=== PATIENT | female | born 1940 | race Caucasian/White ===

== ENCOUNTER 2019-01-19 08:18 | Emergency (ER) | payer MEDICARE, BC ==
[2019-01-19] MEDS ORDERED: Ketorolac 30 MG/ML SDV IVPUSH ONE (08:32)
[2019-01-19] MEDS ORDERED: Sodium Chloride 0.9% 500 ML IV SCH (08:45)
--- NOTE | 2019-01-19 08:53 | EDM.PDOC ---
ED HPI GENERAL MEDICAL PROBLEM - General Stated Complaint: FELL AND HAVING PAIN Time Seen by Provider: 01/19/19 08:31 - History of Present Illness INITIAL COMMENTS - FREE TEXT/NARRATIVE: HISTORY AND PHYSICAL: History of present illness: Patient is a 79-year-old white female who presents status post fall last Saturday in which she fell getting shower striking her left chest and abdomen she's had persistent pain that worsened. She did hit her head has had no loss consciousness no neck pain denies nausea or vomiting. Review of systems: As per history of present illness and below otherwise all systems reviewed and negative. Past medical history: As per history of present illness and as reviewed below otherwise noncontributory. Surgical history: As per history of present illness and as reviewed below otherwise noncontributory. Social history: No reported history of drug or alcohol abuse. Family history: As per history of present illness and as reviewed below otherwise noncontributory. Physical exam: HEENT: Atraumatic, normocephalic, pupils reactive, negative for conjunctival pallor or scleral icterus, mucous membranes moist, throat clear, neck supple, nontender, trachea midline. Lungs: Clear to auscultation, breath sounds equal bilaterally, chest tender left lower ribs to palpation no crepitation no gross deformity Heart: S1S2, regular, negative for clicks, rubs, or JVD. Abdomen: Soft, nondistended, tenderness to palpation in the left thoracoabdominal region. Negative for masses or hepatosplenomegaly. Left-sided costovertebral tenderness. Pelvis: Stable nontender. Genitourinary: Deferred. Rectal: Deferred. Extremities: Atraumatic, negative for cords or calf pain. Neurovascular unremarkable. Neuro: Awake, alert, oriented. Cranial nerves II through XII unremarkable. Cerebellum unremarkable. Motor and sensory unremarkable throughout. Exam nonfocal. Diagnostics: CBC CMP troponin PT/INR EKG CT chest abdomen and pelvis Therapeutics: IV 500 mL bolus saline Toradol 30 mg IV Impression: #1 observation status post fall #2 head injury #3 thoracoabdominal trauma Definitive disposition and diagnosis as appropriate pending reevaluation and review of above. Left Ribs Pain Score (Numeric/FACES): 8 - Related Data Allergies Allergy/AdvReac Type Severity Reaction Status Date / Time No Known Allergies Allergy Verified 10/01/15 11:24 Home Meds: Home Meds Aspirin [Adult Low Dose Aspirin EC] 81 mg PO DAILY #30 tablet. 10/01/15 [Rx] Hydrochlorothiazide 1 tab PO DAILY 10/01/15 [History] amLODIPine [Norvasc] 1 tab PO DAILY 10/01/15 [History] Past Medical History HEENT History: Reports: Impaired Vision Cardiovascular History: Reports: Hypertension Respiratory History: Reports: None Gastrointestinal History: Reports: Other (See Below) Other Gastrointestinal History: colon cancer Genitourinary History: Reports: Urinary Incontinence EDUCATION REP History: Reports: Other (See Below) Other EDUCATION REP History: tubal ligation Musculoskeletal History: Reports: Fracture, Other (See Below) Other Musculoskeletal History: fracture right elbow age 9 Neurological History: Reports: Other (See Below) Other Neuro History: bells palsy Endocrine/Metabolic History: Reports: None Oncologic (Cancer) History: Reports: Colon Other Oncologic History: surgery was done for her colon CA - Infectious Disease History Infectious Disease History: Reports: Measles - Past Surgical History GI Surgical History: Reports: Hernia Repair/Other Social & Family History - Family History HEENT: Reports: None Cardiac: Reports: None Neurological: Reports: CVA Endocrine/Metabolic: Reports: Hypothyroidism Oncologic: Reports: Breast ED ROS GENERAL - Review of Systems Review Of Systems: ROS reveals no pertinent complaints other than HPI. ED EXAM, GENERAL - Physical Exam Exam: See Below (See dictation) Course - Vital Signs Last Recorded V/S: Last Vital Signs Temp 36.6 C 01/19/19 09:12 Pulse 101 H 01/19/19 09:12 Resp 16 01/19/19 09:12 BP 127/84 01/19/19 09:12 Pulse Ox 95 01/19/19 09:12 - Orders/Labs/Meds Orders: Active Orders 24 hr Category Date Time Status EKG Documentation Completion [RC] STAT Care 01/19/19 08:31 Active Sodium Chloride 0.9% [Normal Saline] 500 ml Med 01/19/19 08:45 Active IV STAT Medication Orders Sodium Chloride (Normal Saline) 500 mls @ 999 mls/hr IV STAT SAM Last Admin: 01/19/19 08:46 Dose: 999 mls/hr Labs: Laboratory Tests 01/19/19 01/19/19 01/19/19 Range/Units 08:44 08:44 08:44 WBC 6.36 (4.0-11.0) K/uL RBC 4.82 (4.30-5.90) M/uL Hgb 15.6 (12.0-16.0) g/dL Hct 46.5 H (36.0-46.0) % MCV 96.5 (80.0-98.0) fL MCH 32.4 H (27.0-32.0) pg MCHC 33.5 (31.0-37.0) g/dL RDW Std Deviation 46.3 (28.0-62.0) fl RDW Coeff of Adan 13 (11.0-15.0) % Plt Count 204 (150-400) K/uL MPV 9.60 (7.40-12.00) fL Neut % (Auto) 70.6 (48.0-80.0) % Lymph % (Auto) 18.7 (16.0-40.0) % [place] % (Auto) 9.1 (0.0-15.0) % Eos % (Auto) 1.3 (0.0-7.0) % Baso % (Auto) 0.3 (0.0-1.5) % Neut # (Auto) 4.5 (1.4-5.7) K/uL Lymph # (Auto) 1.2 (0.6-2.4) K/uL [place] # (Auto) 0.6 (0.0-0.8) K/uL Eos # (Auto) 0.1 (0.0-0.7) K/uL Baso # (Auto) 0.0 (0.0-0.1) K/uL Nucleated RBC % 0.0 /100WBC Nucleated RBCs # 0 K/uL INR 1.01 Sodium 140 (136-145) mmol/L Potassium 3.2 L (3.5-5.1) mmol/L Chloride 103 (98-107) mmol/L Carbon Dioxide 25.9 (21.0-32.0) mmol/L BUN 12 (7.0-18.0) mg/dL Creatinine 0.8 (0.6-1.0) mg/dL Est Cr Clr Drug Dosing 54.42 mL/min Estimated GFR (MDRD) > 60.0 ml/min Glucose 129 H (74-106) mg/dL Calcium 8.9 (8.5-10.1) mg/dL Total Bilirubin 1.0 (0.2-1.0) mg/dL AST 21 (15-37) IU/L ALT 33 (14-63) IU/L Alkaline Phosphatase 83 (46-116) U/L Troponin I < 0.050 (0.000-0.056) ng/mL Total Protein 7.3 (6.4-8.2) g/dL Albumin 3.8 (3.4-5.0) g/dL Globulin 3.5 (2.6-4.0) g/dL Albumin/Globulin Ratio 1.1 (0.9-1.6) Lipase 99 (73-393) U/L Meds: Medications Generic Name Dose Route Start Last Admin Trade Name Freq PRN Reason Stop Dose Admin Sodium Chloride 500 mls @ 999 mls/hr 01/19/19 08:45 01/19/19 08:46 Normal Saline IV 999 mls/hr STAT SAM Administration Discontinued Medications Generic Name Dose Route Start Last Admin Trade Name Freq PRN Reason Stop Dose Admin Iopamidol 75 ml 01/19/19 10:02 01/19/19 10:04 Isovue Multipack-370 (76%) IVPUSH 01/19/19 10:03 75 ml ONETIME ONE Administration Ketorolac Tromethamine 30 mg 01/19/19 08:32 01/19/19 08:46 Toradol IVPUSH 01/19/19 08:33 30 mg ONETIME ONE Administration Departure - Departure Time of Disposition: 10:53 Disposition: Home, Self-Care 01 Condition: Good Clinical Impression: Fall, Contusion, Abnormal chest CT - Discharge Information Additional Instructions: The following information is given to patients seen in the emergency department who are being discharged to home. This information is to outline your options for follow-up care. We provide all patients seen in our emergency department with a follow-up referral. The need for follow-up, as well as the timing and circumstances, are variable depending upon the specifics of your emergency department visit. If you don't have a primary care physician on staff, we will provide you with a referral. We always advise you to contact your personal physician following an emergency department visit to inform them of the circumstance of the visit and for follow-up with them and/or the need for any referrals to a consulting specialist. The emergency department will also refer you to a specialist when appropriate. This referral assures that you have the opportunity for followup care with a specialist. All of these measure are taken in an effort to provide you with optimal care, which includes your followup. Under all circumstances we always encourage you to contact your private physician who remains a resource for coordinating your care. When calling for followup care, please make the office aware that this follow-up is from your recent emergency room visit. If for any reason you are refused follow-up, please contact the [facility] emergency department at and asked to speak to the emergency department charge nurse. Hydrocodone as prescribed follow-up primary medical doctor for reevaluation of the CAT scan findings and consultation return as needed as discussed - My Orders Last 24 Hours: My Active Orders 01/19/19 08:31 EKG Documentation Completion [RC] STAT 01/19/19 08:45 Sodium Chloride 0.9% [Normal Saline] 500 ml IV STAT - Assessment/Plan Last 24 Hours: My Active Orders 01/19/19 08:31 EKG Documentation Completion [RC] STAT 01/19/19 08:45 Sodium Chloride 0.9% [Normal Saline] 500 ml IV STAT
[2019-01-19 09:32] LABS: CHLORIDE,CL 103 mmol/L (98-107); SODIUM,NA 140 mmol/L (136-145)
[2019-01-19] MEDS ORDERED: Iopamidol 755 MG/ML 200 ML Multipack Bottle IVPUSH ONE (10:02)
--- NOTE | 2019-01-19 10:32 | CT ---
EXAMINATION: Non contrast CT head. Coronal and sagittal reformats. HISTORY: Pain FINDINGS: No evidence of intra or extra axial hemorrhage, midline shift, hydrocephalus or edema. There is a 1 cm hypodense nodule within the region of the right thalamus, previously characterized on MRI dated 10/13/2015. Periventricular and subcortical white matter hypodensities are noted. No hypoattenuation changes in the major vascular territories to suggest acute infarct. No abnormal intracranial calcifications are detected. No evidence of substantial vascular calcifications. Paranasal sinuses and mastoid air cells are well aerated without substantial findings. Pituitary fossa appears unremarkable. The orbits and globes are symmetric. Calvarium is intact. No evidence of skull fracture. Stable small left frontal subcutaneous calcification also noted. IMPRESSION: 1. No acute intracranial findings. 2. Mild small vessel ischemic changes. 3. Stable tiny right thalamic nodule.
--- NOTE | 2019-01-19 10:43 | CT ---
CT of the chest, abdomen and pelvis with contrast. HISTORY: Shortness of breath TECHNIQUE: Axial CT images were obtained of the chest, abdomen and pelvis following administration of 75 mL of Isovue-370 in the left antecubital fossa without complication. Coronal and sagittal reconstructions obtained. FINDINGS: Chest: Moderate emphysematous changes are noted. There is thickening along the right minor fissure. Likely atelectasis. There is a cavitary 2.6 cm nodule within the right lower lobe. The heart is normal in size without a pericardial effusion. Thoracic aorta is normal in caliber. Main pulmonary arteries are patent without evidence of a pulmonary embolism. No mediastinal, hilar, or axillary lymphadenopathy. Central airways are clear. Abdomen: There are multiple nodules/masses within the liver, the largest measuring 7 cm within the left hepatic lobe. These demonstrate interrupted peripheral nodular enhancement with increasing enhancement on delayed imaging. These are most consistent with hemangiomas. Mild nodular thickening of the left adrenal gland. The gallbladder is grossly unremarkable. The spleen is unremarkable. No bulky retroperitoneal lymphadenopathy or abdominal ascites. The kidneys enhance and function symmetrically without evidence of obstructive uropathy. Renal cortical cysts are noted. Pelvis: The large and small bowel are normal in caliber without evidence of obstruction. No focal pericolonic inflammation or stranding. Postsurgical changes are noted near the cecum. No bulky pelvic lymphadenopathy or free pelvic fluid. The urinary bladder is minimally filled. Small calcified uterine fibroids. Tiny sclerotic focus within the right pedicle of T2. Likely a small meningioma within the spinal canal at approximately T4. Otherwise osseous structures appear intact. Bone mineralization is osteopenic. Degenerative changes noted within the lumbar spine. IMPRESSION: 1. No definite acute findings within the chest, abdomen, or pelvis. 2. Suspicious cavitary 2.6 cm nodule within the left lower lobe. 3. Multiple hepatic hemangiomas. 4. Likely tiny meningioma within the spinal canal at T4. 5. Severe pulmonary emphysema.
[2019-01-19 11:25] VITALS: BP 132/74
== END 2019-01-19 11:26 | disposition home or self-care (01) ==
LOC: MW.ED 08:18
DX: S20.212A Contusion of left front wall of thorax, initial encounter (principal); S00.83XA Contusion of other part of head, initial encounter; W18.2XXA Fall in (into) shower or empty bathtub, initial encounter; R94.8 Abnormal results of function studies of other organs and systems; I10 Essential (primary) hypertension; Z79.82 Long term (current) use of aspirin; Z79.899 Other long term (current) drug therapy
CPT/HCPCS: 36415; 70450; 71260; 74177; 80053; 83690; 84484; 85025; 85610; 93005; 96374; 99284; J1885; J7040; Q9967

== ENCOUNTER 2019-05-22 06:41 | Day surgery (SDC) | payer MEDICARE, BC ==
[~2019-05-22 06:41] MED LIST: Lactated Ringers 1,000 ML IV SCH
[2019-05-22] MEDS ORDERED: Propofol 200 MG/20 ML SDV ONE (07:19)
[2019-05-22] MEDS ORDERED: Midazolam 1 MG/ML 2 ML SDV ONE (07:19)
--- NOTE | 2019-05-22 07:21 | PCM.PREANE ---
Preanesthetic Assessment - Anesthesia/Transfusion/Family Hx Anesthesia History: Prior Anesthesia Without Reaction Family History of Anesthesia Reaction: No Transfusion History: No Prior Transfusion(s) - Review of Systems General: No Symptoms Pulmonary: No Symptoms Cardiovascular: No Symptoms Gastrointestinal: No Symptoms Neurological: No Symptoms Other: Reports: None - Physical Assessment Vital Signs: Last Vital Signs Temp 97.5 F 05/22/19 06:45 Pulse 83 05/22/19 06:45 Resp 16 05/22/19 06:45 BP 123/62 05/22/19 06:45 Pulse Ox 93 L 05/22/19 06:45 Height: 5 ft 6 in Weight: 67.585 kg ASA Class: 2 Mental Status: Alert & Oriented x3 Airway Class: Mallampati = 2 Dentition: Reports: Normal Dentition ROM/Head Extension: Full Lungs: Clear to Auscultation, Normal Respiratory Effort Cardiovascular: Regular Rate, Regular Rhythm - Allergies Allergies/Adverse Reactions: Allergies Allergy/AdvReac Type Severity Reaction Status Date / Time No Known Allergies Allergy Verified 05/20/19 09:53 - Blood Blood Available: No - Anesthesia Plan Pre-Op Medication Ordered: None - Acknowledgements Anesthesia Type Planned: General Anesthesia Pt an Appropriate Candidate for the Planned Anesthesia: Yes Alternatives and Risks of Anesthesia Discussed w Pt/Guardian: Yes Pt/Guardian Understands and Agrees with Anesthesia Plan: Yes Additional Comments: PMH: htm, hld, hx of colon cancer with new rectal bleeding PLAN: tiva PreAnesthesia Questionnaire HEENT History: Reports: Impaired Vision, Other (See Below) Other HEENT History: wears glasses Cardiovascular History: Reports: High Cholesterol, Hypertension Respiratory History: Reports: None Gastrointestinal History: Reports: Other (See Below) Other Gastrointestinal History: colon cancer Genitourinary History: Reports: Urinary Incontinence [employer] History: Reports: Musculoskeletal History: Reports: Fracture, Other (See Below) Other Musculoskeletal History: fracture right elbow age 9 Neurological History: Reports: Other (See Below) Other Neuro History: bells palsy Psychiatric History: Reports: None Endocrine/Metabolic History: Reports: None Hematologic History: Reports: None Immunologic History: Reports: None Oncologic (Cancer) History: Reports: Colon Dermatologic History: Reports: None - Infectious Disease History Infectious Disease History: Reports: Measles - Past Surgical History Head Surgeries/Procedures: Reports: None HEENT Surgical History: Reports: None Cardiovascular Surgical History: Reports: None Respiratory Surgical History: Reports: None GI Surgical History: Reports: Colonoscopy, Hernia, Inguinal Other GI Surgeries/Procedures: rt hemicolectomy 2005, laila inguinal hernia repair Female Surgical History: Reports: Tubal Ligation Endocrine Surgical History: Reports: Thyroidectomy Other Endocrine Surgeries/Procedures: thyroid surgery Neurological Surgical History: Reports: None Musculoskeletal Surgical History: Reports: None Dermatological Surgical History: Reports: None - SUBSTANCE USE Smoking Status *Q: Former Smoker Recreational Drug Use History: No - HOME MEDS Home Medications: Home Meds Hydrochlorothiazide 1 tab PO DAILY 10/01/15 [History] amLODIPine [Norvasc] 1 tab PO DAILY 10/01/15 [History] atorvaSTATin Calcium [Atorvastatin Calcium] 1 tab PO DAILY 05/20/19 [History] - CURRENT (IN HOUSE) MEDS Current Meds: Current Medications Lactated Ringer's (Ringers, Lactated) 1,000 mls @ 125 mls/hr IV ASDIRECTED [facility] Last Admin: 05/22/19 07:00 Dose: 125 mls/hr
--- NOTE | 2019-05-22 08:51 | PCM.OPNOTE ---
- General Post-Op/Procedure Note Date of Surgery/Procedure: 05/22/19 Operative Procedure(s): Colonoscopy with biopsy of the distal small bowel and cold polypectomies from the transverse colon and rectum. Pre Op Diagnosis: Personal history of colon cancer. Intermittent rectal bleeding. 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 Transverse colon polyp. Mid and distal rectal polyps. Anesthesia Technique: MAC (ASA II) Primary Surgeon: Zach Taylor Condition: Good Free Text/Narrative:: DICTATION [id number] CPT CODE 77497
[2019-05-22] MEDS ORDERED: Lactated Ringers 1,000 ML IV SCH (09:00)
--- NOTE | 2019-05-22 09:13 | PCM.POSTAN ---
POST ANESTHESIA ASSESSMENT - MENTAL STATUS Mental Status: Alert, Oriented - VITAL SIGNS Vital Signs: Last Vital Signs Temp 97.5 F 05/22/19 06:45 Pulse 66 05/22/19 08:56 Resp 18 05/22/19 08:56 BP 139/80 05/22/19 08:56 Pulse Ox 95 05/22/19 08:56 - RESPIRATORY Respiratory Status: Respiratory Rate WNL, Airway Patent, O2 Saturation Stable - CARDIOVASCULAR CV Status: Pulse Rate WNL, Blood Pressure Stable - GASTROINTESTINAL GI Status: No Symptoms - POST OP HYDRATION Hydration Status: Adequate & Stable
--- NOTE | 2019-05-22 09:13 | PCM48HPAN ---
Post Anesthesia Note - EVALUATION WITHIN 48HRS OF ANESTHETIC Vital Signs in Normal Range: Yes Patient Participated in Evaluation: Yes Respiratory Function Stable: Yes Airway Patent: Yes Cardiovascular Function Stable: Yes Hydration Status Stable: Yes Pain Control Satisfactory: Yes Nausea and Vomiting Control Satisfactory: Yes Mental Status Recovered: Yes Vital Signs: Last Vital Signs Temp 97.5 F 05/22/19 06:45 Pulse 66 05/22/19 08:56 Resp 18 05/22/19 08:56 BP 139/80 05/22/19 08:56 Pulse Ox 95 05/22/19 08:56
--- NOTE | 2019-05-22 09:38 | OR ---
SURGEON: Zach Taylor M.D. DATE OF PROCEDURE: 05/22/2019 OPERATIONS PERFORMED: Colonoscopy with biopsy of the distal small bowel proximal to the anastomosis, transverse colon polypectomy, and rectal polypectomy. PREOPERATIVE DIAGNOSES: 1. Personal history of colon cancer. 2. Rectal bleeding. POSTOPERATIVE DIAGNOSES: 1. Lymphoid hyperplasia at the distal small bowel. 2. Transverse colon polyp. 3. Mid rectal polyps x2, sent as one specimen as they were within 1 to 2 cm. 4. Distal rectal polyp. DESCRIPTION OF PROCEDURE: The patient was taken to the endoscopy room and positioned on the endoscopy table in the left lateral decubitus position. Time-out was called for appropriate identification of the patient and procedure. Monitored anesthesia care was provided. The colonoscope was inserted into the rectum and advanced with minimal difficulty to the proximal colon visualizing the anastomosis easily. The colonoscope does traverse the anastomosis and there was no obvious evidence of recurrent disease at the anastomotic site. The colonoscope was then slowly withdrawn. The first polyp was encountered in the transverse colon and removed with the cold biopsy forceps. The remainder of the transverse colon, splenic flexure, descending colon, and sigmoid colon showed no tumors, polyps, diverticula, or angiodysplastic changes. The colonoscope was withdrawn to the rectum, and between 15 and 17 cm from the anal orifice, two polyps were encountered and removed with the cold biopsy forceps. Since these were so close together, they were sent as one specimen. The colonoscope was then retroflexed to visualize the anal orifice from above. A distal rectal polyp was also encountered and likewise removed with the cold biopsy forceps. Minimal bleeding was noted. The patient also has hemorrhoidal disease. There was no obvious tumor recurrence. The colonoscope was then straightened, the rectum aspirated, and the colonoscope removed. The patient tolerated the procedure well and was taken to recovery room in stable condition. DALE / KEITH /[id number]
[2019-05-22 11:52] VITALS: BP 140/67
== END 2019-05-22 09:25 | disposition home or self-care (01) ==
LOC: MW.SDS 06:41
PROVIDERS: ATTEND Surgery
DX: D12.8 Benign neoplasm of rectum (principal); K63.89 Other specified diseases of intestine; K63.5 Polyp of colon; E78.00 Pure hypercholesterolemia, unspecified; I10 Essential (primary) hypertension; F17.210 Nicotine dependence, cigarettes, uncomplicated; Z85.038 Personal history of other malignant neoplasm of large intestine; Z80.0 Family history of malignant neoplasm of digestive organs; Z79.899 Other long term (current) drug therapy
CPT/HCPCS: 45380; 88305; J2250; J2704; J7120; 00811

== ENCOUNTER 2023-11-21 17:05 | Emergency (ER) | payer MEDICARE, OTHER, BC ==
[2023-11-21 17:32] LABS: BASOPHILS ABSOLUTE AUTO 0.02 K/uL (0.00-0.20); BASOPHILS PERCENT AUTO 0.4 % (0.0-1.0); EOSINOPHILS ABSOLUTE AUTO 0.03 K/uL (0.00-0.45); EOSINOPHILS PERCENT AUTO 0.6 % (0.0-6.0); HEMATOCRIT 39.8 % (37.0-47.0); HEMOGLOBIN 13.5 g/dL (12.0-16.0); IMMATURE GRAN ABSOLUTE AUTO 0.01 K/uL (0.00-0.05); IMMATURE GRAN PERCENT AUTO 0.2 % (0.0-0.4); LYMPHOCYTES ABSOLUTE AUTO 1.22 K/uL (1.00-4.80); LYMPHOCYTES PERCENT AUTO 24.7 % (24.0-44.0); MEAN CORPUSCULAR HEMOGLOBIN 36.1 pg (28.0-32.0); MEAN CORPUSCULAR HGB CONC 33.9 g/dL (32.0-36.0); MEAN CORPUSCULAR VOLUME 106.4 fL (83.0-99.0); MEAN PLATELET VOLUME 9.3 fL (9.4-12.3); MONOCYTES ABSOLUTE AUTO 0.45 K/uL (0.00-0.80); MONOCYTES PERCENT AUTO 9.1 % (0.0-8.0); PLATELET COUNT,PLT 163 K/uL (150-400); RED BLOOD CELL COUNT 3.74 M/uL (4.10-5.30); WHITE BLOOD CELL COUNT,WBC 4.93 K/uL (3.9-11.3)
[2023-11-21] MEDS: Sodium Chloride 0.9% 10 ML Syringe FLUSH PRN (17:37)
[2023-11-21] MEDS: Sodium Chloride 0.9% 2.5 ML Syringe FLUSH PRN (17:38)
[2023-11-21 17:40] LABS: INR 1.08 (0.86-1.11)
[2023-11-21 18:01] LABS: A/G RATIO 1.1 (0.9-1.6); ALBUMIN 3.7 g/dL (3.4-5.0); BILIRUBIN TOTAL 0.3 mg/dL (0.2-1.0); CALCIUM 8.8 mg/dL (8.5-10.1); CARBON DIOXIDE,CO2 21.3 mmol/L (21.0-32.0); CREATININE 0.9 mg/dL (0.6-1.0); EST CRCL DRUG DOSING (CG) 43.29 mL/min; POTASSIUM,K 3.9 mmol/L (3.5-5.1); PROTEIN TOTAL,TP 7.2 g/dL (6.4-8.2)
[2023-11-21 19:43] VITALS: BP 133/87; PULSE 105
== END 2023-11-21 19:43 | disposition home or self-care (01) ==
LOC: MW.ED 17:05
DX: G25.9 Extrapyramidal and movement disorder, unspecified (principal); I44.7 Left bundle-branch block, unspecified; I10 Essential (primary) hypertension; E78.00 Pure hypercholesterolemia, unspecified; Z79.899 Other long term (current) drug therapy
CPT/HCPCS: 36415; 80053; 84484; 85025; 85610; 99285; J3490; 93010; 99282

== ENCOUNTER 2024-01-02 17:32 | Inpatient (IN) | payer MEDICARE, OTHER ==
[2024-01-02] MEDS: Sodium Chloride 0.9% 2.5 ML Syringe FLUSH PRN (18:08)
[2024-01-02] MEDS: Sodium Chloride 0.9% 10 ML Syringe FLUSH PRN (18:08)
[2024-01-02 18:09] LABS: BASOPHILS ABSOLUTE AUTO 0.02 K/uL (0.00-0.20); BASOPHILS PERCENT AUTO 0.2 % (0.0-1.0); HEMATOCRIT 37.6 % (37.0-47.0); IMMATURE GRAN ABSOLUTE AUTO 0.05 K/uL (0.00-0.05); IMMATURE GRAN PERCENT AUTO 0.4 % (0.0-0.4); LYMPHOCYTES ABSOLUTE AUTO 0.53 K/uL (1.00-4.80); LYMPHOCYTES PERCENT AUTO 4.7 % (24.0-44.0); MEAN CORPUSCULAR HEMOGLOBIN 36.6 pg (28.0-32.0); MEAN CORPUSCULAR HGB CONC 34.6 g/dL (32.0-36.0); MEAN CORPUSCULAR VOLUME 105.9 fL (83.0-99.0); MEAN PLATELET VOLUME 9.6 fL (9.4-12.3); MONOCYTES PERCENT AUTO 7.1 % (0.0-8.0); NEUTROPHILS ABSOLUTE AUTO 9.82 K/uL (1.80-7.70); NEUTROPHILS PERCENT AUTO 87.6 % (41.0-71.0); PLATELET COUNT,PLT 105 K/uL (150-400); RED BLOOD CELL COUNT 3.55 M/uL (4.10-5.30); WHITE BLOOD CELL COUNT,WBC 11.22 K/uL (3.9-11.3)
[2024-01-02] MEDS: Sodium Chloride 0.9% 1,000 ML IV STA (18:31)
[2024-01-02 18:36] LABS: ALBUMIN 3.7 g/dL (3.4-5.0); BILIRUBIN TOTAL 0.6 mg/dL (0.2-1.0); CALCIUM 9.4 mg/dL (8.5-10.1); CARBON DIOXIDE,CO2 22.4 mmol/L (21.0-32.0); CREATININE 0.7 mg/dL (0.6-1.0); EST CRCL DRUG DOSING (CG) 52.98 mL/min; POTASSIUM,K 3.7 mmol/L (3.5-5.1); PROTEIN TOTAL,TP 7.3 g/dL (6.4-8.2)
[2024-01-02 18:53] LABS: CORONAVIRUS COVID-19 NAA NEGATIVE (NEGATIVE); INFLUENZA A NAA NEGATIVE (NEGATIVE); INFLUENZA B NAA NEGATIVE (NEGATIVE); RESPIRATORY SYNCYTIAL VIR NAA NEGATIVE (NEGATIVE)
[2024-01-02] MEDS: Piperacillin/Tazobactam 4.5 GM in Sodium Chloride 0.9% 100 ML IV ONE (19:13)
[2024-01-02 19:18] LABS: LACTIC ACID 1.2 mmol/L (0.4-2.0)
[2024-01-02] MEDS: Iopamidol 755 MG/ML 500 ML Multipack Bottle IVPUSH STA (19:21)
[2024-01-02] MEDS: Morphine 4 MG/ML Syringe IVPUSH ONE (19:33)
[2024-01-02] MEDS: Ondansetron 4 MG/2 ML SDV IVPUSH ONE (19:34)
[2024-01-02 20:18] LABS: APPEARANCE,URINE CLEAR; BILIRUBIN,URINE NEGATIVE (NEGATIVE); COLOR,URINE YELLOW; GLUCOSE,URINE NEGATIVE (NEGATIVE); KETONES,URINE NEGATIVE (NEGATIVE); LEUKOCYTE ESTERASE,URINE NEGATIVE (NEGATIVE); NITRITE,URINE POSITIVE (NEGATIVE); OCCULT BLOOD,URINE TRACE-INTACT (NEGATIVE); PROTEIN,URINE NEGATIVE (NEGATIVE); UROBILINOGEN,URINE 0.2 EU/dL (<2.0)
[2024-01-02 20:29] LABS: BACTERIA,URINE RARE (NEGATIVE); RBC,URINE 0-1 (0-2/HPF); SQUAMOUS EPITHELIAL CELLS,UR RARE; WBC,URINE 0-2 (0-5/HPF)
[2024-01-02] MEDS: Azithromycin 500 MG in Sodium Chloride 0.9% 250 ML IV SCH (23:26)
[2024-01-03] MEDS: Piperacillin/Tazobactam 4.5 GM in Sodium Chloride 0.9% 100 ML IV SCH (00:32)
[2024-01-03] MEDS ORDERED: Piperacillin/Tazobactam 3.375 GM in Sodium Chloride 0.9% 100 ML IV SCH (01:00)
[2024-01-03 06:06] LABS: BASOPHILS ABSOLUTE AUTO 0.02 K/uL (0.00-0.20); BASOPHILS PERCENT AUTO 0.2 % (0.0-1.0); EOSINOPHILS ABSOLUTE AUTO 0.01 K/uL (0.00-0.45); EOSINOPHILS PERCENT AUTO 0.1 % (0.0-6.0); HEMATOCRIT 33.5 % (37.0-47.0); HEMOGLOBIN 11.4 g/dL (12.0-16.0); IMMATURE GRAN ABSOLUTE AUTO 0.05 K/uL (0.00-0.05); IMMATURE GRAN PERCENT AUTO 0.5 % (0.0-0.4); LYMPHOCYTES ABSOLUTE AUTO 0.91 K/uL (1.00-4.80); LYMPHOCYTES PERCENT AUTO 8.3 % (24.0-44.0); MEAN CORPUSCULAR HEMOGLOBIN 36.2 pg (28.0-32.0); MEAN CORPUSCULAR VOLUME 106.3 fL (83.0-99.0); MEAN PLATELET VOLUME 9.8 fL (9.4-12.3); MONOCYTES ABSOLUTE AUTO 1.11 K/uL (0.00-0.80); MONOCYTES PERCENT AUTO 10.2 % (0.0-8.0); NEUTROPHILS ABSOLUTE AUTO 8.82 K/uL (1.80-7.70); NEUTROPHILS PERCENT AUTO 80.7 % (41.0-71.0); PLATELET COUNT,PLT 102 K/uL (150-400); RED BLOOD CELL COUNT 3.15 M/uL (4.10-5.30); WHITE BLOOD CELL COUNT,WBC 10.92 K/uL (3.9-11.3)
[2024-01-03 06:28] LABS: CALCIUM 8.6 mg/dL (8.5-10.1); CARBON DIOXIDE,CO2 25.9 mmol/L (21.0-32.0); CREATININE 0.7 mg/dL (0.6-1.0); EST CRCL DRUG DOSING (CG) 55.16 mL/min; POTASSIUM,K 3.5 mmol/L (3.5-5.1)
[2024-01-03] MEDS: Acetaminophen 325 MG Tab PO PRN (08:34)
[2024-01-03] MEDS ORDERED: oxyCODONE 5 MG Tab PO PRN (10:44)
[2024-01-03] MEDS: Hydrochlorothiazide 25 MG Tab PO SCH (10:54)
[2024-01-03] MEDS: amLODIPine 5 MG Tab PO SCH (10:55)
[2024-01-03] MEDS: Ibuprofen 600 MG Tab PO PRN (10:57)
[2024-01-03] MEDS: Cyclobenzaprine 5 MG Tab PO PRN (12:18)
[2024-01-03 16:47] VITALS: BP 102/56
[2024-01-03 18:58] VITALS: PULSE 72
[2024-01-03] MEDS ORDERED: atorvaSTATin 10 MG Tab PO SCH (21:00)
== END 2024-01-03 18:50 | disposition home or self-care (01) | DRG 195 ==
LOC: MW.ED 17:32 → MW.MS 20:47
PROVIDERS: ADMIT Internal Medicine; ATTEND Internal Medicine
DX: J18.9 Pneumonia, unspecified organism (principal); R50.9 Fever, unspecified; I10 Essential (primary) hypertension; E78.00 Pure hypercholesterolemia, unspecified; Z79.899 Other long term (current) drug therapy; Z98.51 Tubal ligation status; Z98.890 Other specified postprocedural states; Z87.891 Personal history of nicotine dependence; Z90.49 Acquired absence of other specified parts of digestive tract
CPT/HCPCS: 0241U; 36415; 71045; 71275; 74177; 80048; 80053; 80202; 81001; 83605; 83690; 84484; 85025; 87040; 93005; 96365; 96367; 96375; 99285; 93010; A9270-GY; J0456; J2270; J2405; J2543; J3370; J3490; J7030; J7050; Q9967

== ENCOUNTER 2025-06-20 14:38 | Emergency (ER) | payer MEDICARE, OTHER ==
[2025-06-20] MEDS ORDERED: Sodium Chloride 0.9% 2.5 ML Syringe FLUSH PRN (15:16)
[2025-06-20] MEDS ORDERED: Sodium Chloride 0.9% 10 ML Syringe FLUSH PRN (15:16)
[2025-06-20 15:39] LABS: BASOPHILS ABSOLUTE AUTO 0.04 K/uL (0.00-0.20); BASOPHILS PERCENT AUTO 0.6 % (0.0-1.0); EOSINOPHILS ABSOLUTE AUTO 0.01 K/uL (0.00-0.45); EOSINOPHILS PERCENT AUTO 0.1 % (0.0-6.0); IMMATURE GRAN ABSOLUTE AUTO 0.02 K/uL (0.00-0.05); IMMATURE GRAN PERCENT AUTO 0.3 % (0.0-0.4); LYMPHOCYTES ABSOLUTE AUTO 0.75 K/uL (1.00-4.80); LYMPHOCYTES PERCENT AUTO 11.0 % (24.0-44.0); MEAN PLATELET VOLUME 10.7 fL (9.4-12.3); MONOCYTES ABSOLUTE AUTO 0.51 K/uL (0.00-0.80); MONOCYTES PERCENT AUTO 7.5 % (0.0-8.0); NEUTROPHILS ABSOLUTE AUTO 5.51 K/uL (1.80-7.70); NEUTROPHILS PERCENT AUTO 80.5 % (41.0-71.0); NRBC ABSOLUTE 0.00 K/uL (0.00-0.02); NRBC PERCENT 0.0 /100WBC (0.0-0.2); PLATELET COUNT,PLT 144 K/uL (150-400); RED BLOOD CELL COUNT 4.08 M/uL (4.10-5.30); WHITE BLOOD CELL COUNT,WBC 6.84 K/uL (3.9-11.3)
[2025-06-20 15:52] LABS: INR 1.17 (0.86-1.11)
[2025-06-20 16:11] LABS: A/G RATIO 1.1 (0.9-1.6); ALANINE AMINOTRANSFERASE,ALT 72.0 IU/L (14-63); ASPARTATE AMNIOTRANSFERASE,AST 81.0 IU/L (15-37); BILIRUBIN TOTAL 0.9 mg/dL (0.2-1.0); BLOOD UREA NITROGEN,BUN 23.0 mg/dL (7.0-18.0); CARBON DIOXIDE,CO2 22.5 mmol/L (21.0-32.0); CHLORIDE,CL 101.0 mmol/L (98-107); CREATININE 0.7 mg/dL (0.6-1.0); EST CRCL DRUG DOSING (CG) 53.43 mL/min; GLUCOSE RANDOM 101.0 mg/dL (74-106); POTASSIUM,K 3.8 mmol/L (3.5-5.1); PRO B-TYPE NATRIUR PEPT,BNPPRO 1204.0 pg/mL (0-450); PROTEIN TOTAL,TP 7.4 g/dL (6.4-8.2); SODIUM,NA 137.0 mmol/L (136-145)
[2025-06-20 16:17] LABS: ESTIMATED GFR 85.0 mL/min (>60)
[2025-06-20 18:32] VITALS: BP 156/69; PULSE 37
== END 2025-06-20 19:02 ==
LOC: MW.ED 14:38
DX: I44.2 Atrioventricular block, complete (principal); R11.2 Nausea with vomiting, unspecified; R19.7 Diarrhea, unspecified; R79.89 Other specified abnormal findings of blood chemistry; R74.8 Abnormal levels of other serum enzymes; E86.0 Dehydration; I10 Essential (primary) hypertension; E78.00 Pure hypercholesterolemia, unspecified; Z85.038 Personal history of other malignant neoplasm of large intestine; Z79.899 Other long term (current) drug therapy
CPT/HCPCS: 36415; 71045; 80053; 83605; 83690; 83735; 83880; 84484; 85025; 85610; 85652; 86140; 93005; 96360; 99285; A9270; J7030; 93010